=== PATIENT | female | born 1960 | race Caucasian/White ===

== ENCOUNTER → 2019-05-19 | Outpatient (CLI) | payer BC ==
--- NOTE | 2019-05-20 11:51 | MM ---
Reason for exam: screening (asymptomatic). Last mammogram was performed 3 years and 1 month ago. History: Patient is postmenopausal. Family history of premenopausal breast cancer in mother. Physical Findings: A clinical breast exam by your physician is recommended on an annual basis and results should be correlated with mammographic findings. MG Screening Mammo w CAD Bilateral CC and MLO view(s) were taken. Prior study comparison: April 25, 2016, bilateral MG screening mammo w CAD. November 14, 2013, bilateral digital screening mammo w/CAD. The breast tissue is heterogeneously dense. This may lower the sensitivity of mammography. Benign appearing bilateral calcifications. No suspicious abnormality. No significant changes when compared with prior studies. ASSESSMENT: Benign, BI-RAD 2 RECOMMENDATION: Routine screening mammogram of both breasts in 1 year.
== END | disposition home or self-care (01) ==
LOC: RADMAMWWP 09:41
PROVIDERS: ATTEND Family Medicine
DX: Z12.31 Encounter for screening mammogram for malignant neoplasm of breast (principal)
CPT/HCPCS: 77067

== ENCOUNTER → 2020-05-21 | Outpatient (CLI) | payer BC ==
--- NOTE | 2020-05-25 08:33 | MM ---
Reason for exam: screening (asymptomatic). Last mammogram was performed 1 year ago. History: Patient is postmenopausal. Family history of premenopausal breast cancer in mother. Physical Findings: A clinical breast exam by your physician is recommended on an annual basis and results should be correlated with mammographic findings. MG Screening Mammo w CAD Bilateral CC and MLO view(s) were taken. Prior study comparison: May 19, 2019, bilateral MG screening mammo w CAD. April 25, 2016, bilateral MG screening mammo w CAD. There are scattered fibroglandular densities. Benign appearing bilateral calcifications. No significant changes when compared with prior studies. ASSESSMENT: Benign, BI-RAD 2 RECOMMENDATION: Routine screening mammogram of both breasts in 1 year.
== END | disposition home or self-care (01) ==
LOC: RADMAMWWP 14:49
PROVIDERS: ATTEND Family Medicine
DX: Z12.31 Encounter for screening mammogram for malignant neoplasm of breast (principal)
CPT/HCPCS: 77067

== ENCOUNTER → 2021-06-28 | Outpatient (CLI) | payer BC ==
--- NOTE | 2021-06-28 11:22 | US ---
EXAMINATION TYPE: US carotid duplex BILAT DATE OF EXAM: 06/28/2021 COMPARISON: US Carotid 09/07/2015 CLINICAL HISTORY: R42 Dizziness and giddiness. EXAM MEASUREMENTS: RIGHT: Peak Systolic Velocity (PSV) cm/sec ----- Right CCA: 104 ----- Right ICA: 93.6 ----- Right ECA: 174 ICA/CCA ratio: 1.5 RIGHT: End Diastole cm/sec ----- Right CCA: 19.8 ----- Right ICA: 35.3 ----- Right ECA: 26.2 LEFT: Peak Systolic Velocity (PSV) cm/sec ----- Left CCA: 87.1 ----- Left ICA: 96.2 ----- Left ECA: 172.6 ICA/CCA ratio: 1.4 LEFT: End Diastole cm/sec ----- Left CCA: 19.8 ----- Left ICA: 35.3 ----- Left ECA: 26.3 VERTEBRALS (direction of flow): Right Vertebral: Antegrade Left Vertebral: Antegrade Rhythm: Normal Mild plaque visualized within the right and left carotid bulb as well as the left proximal ICA. Velo cities appear elevated within the right and left ECA. IMPRESSION: Mild atherosclerotic changes bilaterally remain present without hemodynamic significant stenosis in either internal carotid artery. Criteria for Assigning % of Stenosis / Diameter reduction (Estimation based on the indirect measurements of the internal carotid artery velocities (ICA PSV). 1. Normal (no stenosis)=ICA PSV < 125 cm/s: ratio < 2.0: ICA EDV<40 cm/s. 2. Less than 50% stenosis=ICA PSV < 125 cm/s: ratio < 2.0: ICA EDV<40 cm/s. 3. 50 to 69% stenosis=ICA PSV of 125 to 230 cm/s: ration 2.0 ? 4.0: ICA EDV 40-100 cm/s. 4. Greater than 70% stenosis to near occlusion= ICA PSV > 230 cm/s: ratio > 4.0: ICA EDV > 100 cm/s. 5. Near occlusion= ICA PSV velocities may be low or undetectable: variable ratio and ICA EDV. 6. Total occlusion=unable to detect flow.
--- NOTE | 2021-06-29 12:48 | MM ---
Reason for exam: screening (asymptomatic). Last mammogram was performed 1 year and 1 month ago. History: Patient is postmenopausal. Family history of breast cancer in paternal aunt and premenopausal breast cancer in mother. Physical Findings: A clinical breast exam by your physician is recommended on an annual basis and results should be correlated with mammographic findings. MG Screening Mammo w CAD Bilateral CC and MLO view(s) were taken. Prior study comparison: May 21, 2020, bilateral MG screening mammo w CAD. May 19, 2019, bilateral MG screening mammo w CAD. There are scattered fibroglandular densities. No significant changes when compared with prior studies. ASSESSMENT: Benign, BI-RAD 2 RECOMMENDATION: Routine screening mammogram of both breasts in 1 year.
== END | disposition home or self-care (01) ==
LOC: RADUSWWP 10:06
PROVIDERS: ATTEND Family Medicine
DX: Z12.31 Encounter for screening mammogram for malignant neoplasm of breast (principal); I65.23 Occlusion and stenosis of bilateral carotid arteries; Z80.3 Family history of malignant neoplasm of breast; Z78.0 Asymptomatic menopausal state
CPT/HCPCS: 77067; 93880

== ENCOUNTER → 2021-10-17 | Outpatient (CLI) | payer BC ==
--- NOTE | 2021-10-17 18:05 | XR ---
EXAMINATION TYPE: XR chest 2V, XR thoracic spine complete DATE OF EXAM: 10/17/2021 COMPARISON: None available HISTORY: Right-sided pain for one year TECHNIQUE: Frontal and lateral views of the chest are obtained. 3 views of the thoracic spine FINDINGS: Grossly unremarkable lungs. No pleural effusion or pneumothorax. No gross cardiomegaly. Deg enerative changes of lower cervical spine. T1 vertebral body is suboptimally visualized in the latera l view. Preserved dorsal kyphosis. No significant anterolisthesis or retrolisthesis. No definite vertebral alessandra dy collapse or acute displaced fracture. Degenerative changes of the thoracic spine with multilevel o pposing endplate osteophytosis, most evident at the mid and lower thoracic level. Rather maintained i ntervertebral disc spaces. No gross paraspinal lesion. IMPRESSION: Degenerative changes of the lower cervical and the thoracic spine as described above.
--- NOTE | 2021-10-17 18:08 | XR ---
EXAMINATION TYPE: XR lumbar spine 2 or 3V DATE OF EXAM: 10/17/2021 COMPARISON: None available INDICATION: Right-sided pain for one year, worse in the last 3 months. TECHNIQUE: Standard 3 views of the lumbar spine. FINDINGS: Preserved lumbar lordosis. No significant anterolisthesis or retrolisthesis. No definite vertebral alessandra dy collapse or acute displaced fracture. Degenerative changes of the lumbar spine with multilevel opposing endplate osteophytosis. Slightly de generated L5-S1 disc. Suspected mild L5-S1 facet osteoarthropathy. Aortic atherosclerotic calcificati ons. IMPRESSION: Degenerative changes of the lumbar spine as described above. Further MRI assessment can be considered if clinically required.
== END | disposition home or self-care (01) ==
LOC: RADXRMAIN 11:21
PROVIDERS: ATTEND Internal Medicine Hematology & Oncology
DX: M47.812 Spondylosis without myelopathy or radiculopathy, cervical region (principal); M47.816 Spondylosis without myelopathy or radiculopathy, lumbar region; M47.814 Spondylosis without myelopathy or radiculopathy, thoracic region; D68.8 Other specified coagulation defects; E78.5 Hyperlipidemia, unspecified; Z71.3 Dietary counseling and surveillance
CPT/HCPCS: 71046; 72072; 72100

== ENCOUNTER → 2021-10-24 | Outpatient (CLI) | payer BC ==
--- NOTE | 2021-10-24 12:25 | US ---
EXAMINATION TYPE: US abdomen complete DATE OF EXAM: 10/24/2021 COMPARISON: NONE CLINICAL HISTORY: 61-year-old female R10.11 ABDOMINAL PAIN. RUQ Pain TECHNIQUE: Multiple sonographic images of the abdomen are obtained. FINDINGS: EXAM MEASUREMENTS: Liver Length: 15.0 cm Gallbladder Wall: 0.2 cm CBD: 0.4 cm Spleen: 12.1 cm Right Kidney: 9.9 x 5.1 x 5.1 cm Left Kidney: 10.4 x 5.6 x 5.6 cm Pancreas: Pulmonary portions of the pancreatic body are visualized. Head and tail obscured by bowel gas shadowing. Liver: Echogenic and mildly heterogeneous. No focal lesion seen. Gallbladder: No stones seen Evidence for sonographic Loyola's sign: No CBD: wnl Spleen: wnl Right Kidney: A couple parapelvic cysts measuring up to 1.7 cm. These are not branching and do not co nnect, arguing against hydronephrosis. Left Kidney: No hydronephrosis or masses seen Upper IVC: wnl Abd Aorta: wnl IMPRESSION: 1. Suspect mild to moderate hepatic steatosis. 2. No gallstones or biliary ductal dilatation.
== END | disposition home or self-care (01) ==
LOC: RADUSWWP 10:45
PROVIDERS: ATTEND Internal Medicine Hematology & Oncology
DX: R10.11 Right upper quadrant pain (principal)
CPT/HCPCS: 76700

== ENCOUNTER 2021-12-01 08:43 | Day surgery (SDC) | payer BC ==
[2021-11-29 16:24] VITALS: BMI 36.8
--- NOTE | 2021-12-01 08:14 | P.GSHP ---
History of Present Illness H&P Date: 12/01/21 CHIEF COMPLAINT: Colon screen HISTORY OF PRESENT ILLNESS: The patient is a 61-year-old female who presents for colon screen. Lower endoscopy was offered for further evaluation and management. PAST MEDICAL HISTORY: Please see list. PAST SURGICAL HISTORY: Please see list. MEDICATIONS: Please see list. ALLERGIES: Please see list. SOCIAL HISTORY: No illicit drug use FAMILY HISTORY: No reports of Crohn disease or ulcerative colitis. REVIEW OF ORGAN SYSTEMS: CONSTITUTIONAL: No reports of fevers or chills. PHYSICAL EXAM: VITAL SIGNS: Stable GENERAL: Well-developed pleasant in no acute distress. HEENT: No scleral icterus. Extraocular movements grossly intact. Moist buccal mucosa. NECK: Supple without lymphadenopathy. CHEST: Unlabored respirations. Equal bilateral excursions. CARDIOVASCULAR: Regular rate and rhythm. Distal 2+ pulses. ABDOMEN: Soft, nontender, nondistended. MUSCULOSKELETAL: No clubbing, cyanosis, or edema. ASSESSMENT: 1. Colon screen. PLAN: 1. Recommend proceeding with a lower endoscopy Past Medical History Past Medical History: Hyperlipidemia, Hypertension, Thyroid Disorder Additional Past Medical History / Comment(s): fatty liver, hx colon polyp History of Any Multi-Drug Resistant Organisms: None Reported Additional Past Surgical History / Comment(s): colonoscopy,repair lt detached retina Past Anesthesia/Blood Transfusion Reactions: No Reported Reaction Smoking Status: Never smoker - Past Family History Mother Family Medical History: Deep Vein Thrombosis (DVT) Sister(s) Family Medical History: Vascular Disorder Medications and Allergies Home Medications Medication Instructions Recorded Confirmed Type Aspirin 81 mg PO DAILY 11/29/21 11/29/21 History Chlorthalidone [Hygroton] 12.5 mg PO DAILY 11/29/21 11/29/21 History Cholecalciferol [Vitamin D3 (25 50 mcg PO DAILY 11/29/21 11/29/21 History Mcg = 1000 Iu)] Levothyroxine Sodium [Synthroid] 88 mcg PO QAM 11/29/21 11/29/21 History Magnesium 250 mg PO HS 11/29/21 11/29/21 History Olmesartan Medoxomil 20 mg PO QAM 11/29/21 11/29/21 History Rosuvastatin Calcium 20 mg PO HS 11/29/21 11/29/21 History Ubidecarenone [Co Q-10] 100 mg PO DAILY 11/29/21 11/29/21 History amLODIPine BESYLATE 10 mg PO QAM 11/29/21 11/29/21 History Allergies Allergy/AdvReac Type Severity Reaction Status Date / Time ezetimibe [From Zetia] Allergy "it didn't Verified 11/29/21 16:13 agree with me" gemifloxacin [From Factive] Allergy Swelling,hi Verified 11/29/21 16:13 ve
[~2021-12-01 08:43] MED LIST: LACTATED RINGERS 1,000 ML IV SCH
[2021-12-01] MEDS ORDERED: LIDOCAINE 1% (10MG/ML) FOR IV START INTRADERMA ONE (09:15)
[2021-12-01 09:17] VITALS: RESP 16; TEMP 97.1
[2021-12-01] MEDS ORDERED: PROPOFOL 10 MG/ML 20 ML VIAL IV ONE (10:16)
[2021-12-01 11:00] VITALS: BP 134/63; PULSE 56
--- NOTE | 2021-12-01 11:07 | P.PCN ---
Date of Procedure: 12/01/21 Description of Procedure: PREOPERATIVE DIAGNOSIS: Colonoscopy screening. POSTOPERATIVE DIAGNOSIS: Colonoscopy screening. Diverticulosis, severe sigmoid diverticulosis with stricture OPERATION: Colonoscopy to the cecum, ileocecal valve and appendiceal orifice. SURGEON: Radha George MD. ANESTHESIA: MAC. INDICATIONS: The patient is a 61-year-old female who presents for colonoscopy screening. Last colonoscopy 5 years ago. Benefits and risks were described and informed consent was obtained. DESCRIPTION OF PROCEDURE: The patient had undergone Sutab prep. The patient had been brought into the operating room and laid in the left lateral decubitus position. After adequate intravenous sedation, the rectum was examined with 2% lidocaine jelly. No external hemorrhoids were encountered. The rectal tone was within normal limits. No lesions were palpated in the rectal vault. An Olympus colonoscope was advanced until the cecum, ileocecal valve and appendiceal orifice were clearly viewed. The prep was excellent. Scattered diverticulosis was encountered. No colonic polyps were found. No evidence of focal colitis was found. Retroflexion of the scope demonstrated grade 1 internal hemorrhoids without active bleeding or inflammation. The colon was desufflated. The patient had tolerated the p rocedure well. Withdrawal time was over 6 minutes. FINDINGS: Aronchick preparation quality scale 1 (1-5) Internal hemorrhoids, grade 1 No external prolapsed hemorrhoids. No arteriovenous malformations. No adenomatous polyps. No focal colitis. RECOMMENDATIONS: Lower endoscopy in 5 years, 2026 Plan - Discharge Summary Discharge Rx Participant: No New Discharge Prescriptions: Continue Rosuvastatin Calcium 20 mg PO HS Magnesium 250 mg PO HS Aspirin 81 mg PO DAILY Ubidecarenone [Co Q-10] 100 mg PO DAILY Cholecalciferol [Vitamin D3 (25 Mcg = 1000 Iu)] 50 mcg PO DAILY Olmesartan Medoxomil 20 mg PO QAM amLODIPine BESYLATE 10 mg PO QAM Levothyroxine Sodium [Synthroid] 88 mcg PO QAM Chlorthalidone [Hygroton] 12.5 mg PO DAILY Discharge Medication List Aspirin 81 mg PO DAILY 11/29/21 [History] Chlorthalidone [Hygroton] 12.5 mg PO DAILY 11/29/21 [History] Cholecalciferol [Vitamin D3 (25 Mcg = 1000 Iu)] 50 mcg PO DAILY 11/29/21 [History] Levothyroxine Sodium [Synthroid] 88 mcg PO QAM 05/10/22 [History] Magnesium 250 mg PO HS 11/29/21 [History] Olmesartan Medoxomil 20 mg PO QAM 11/29/21 [History] Rosuvastatin Calcium 20 mg PO HS 11/29/21 [History] Ubidecarenone [Co Q-10] 100 mg PO DAILY 11/29/21 [History] amLODIPine BESYLATE 10 mg PO QAM 11/29/21 [History] Follow up Appointment(s)/Referral(s): Radha George MD [STAFF PHYSICIAN] - As Needed Patient Instructions/Handouts: Diverticulosis Diet (GEN), Diverticulosis (DC), *Surgery [facility] - (Anesthesia) Endoscopy Discharge Instructions, Colonoscopy (DC) Activity/Diet/Wound Care/Special Instructions: Repeat colonoscopy in 5 years, 2026 Discharge Disposition: HOME SELF-CARE
== END 2021-12-01 11:25 | disposition home or self-care (01) ==
LOC: ORWHC2ENDO 08:43
PROVIDERS: ATTEND Surgery Plastic and Reconstructive Surgery
DX: Z12.11 Encounter for screening for malignant neoplasm of colon (principal); K57.30 Diverticulosis of large intestine without perforation or abscess without bleeding; E07.9 Disorder of thyroid, unspecified; E78.5 Hyperlipidemia, unspecified; I10 Essential (primary) hypertension; Z79.82 Long term (current) use of aspirin; Z86.010 Personal history of colon polyps; Z79.899 Other long term (current) drug therapy
CPT/HCPCS: 45378; J2704

== ENCOUNTER → 2021-12-14 | Outpatient (CLI) | payer BC ==
--- NOTE | 2021-12-14 21:02 | CT ---
EXAMINATION TYPE: CT abdomen pelvis w con DATE OF EXAM: 12/14/2021 COMPARISON: Ultrasound dated 10/24/2021 HISTORY: h/o right side abd pain and diverticulitis CT DLP: 1613 mGycm Automated exposure control for dose reduction was used. TECHNIQUE: Helical acquisition of images was performed from the lung bases through the pelvis. CONTRAST: Performed with Oral Contrast and with IV Contrast, patient injected with 100 mL of Isovue 300. FINDINGS: LUNG BASES: 5mm nodule is seen at the posterior aspect of the left lower lobe, requiring no further f ollow-up if low risk patient. If high risk patient, optional follow-up CT scan in 12 months can be co nsidered. LIVER/GB: No significant abnormality is appreciated. PANCREAS: No significant abnormality is seen. SPLEEN: No significant abnormality is seen. ADRENALS: Tiny bilateral adrenal calcifications, nonspecific. Questionable 9 mm right adrenal nodule. Precautionary follow-up CT scan in 3-6 months can be considered. KIDNEYS: Tiny bilateral renal hypodensities, possibly representing tiny renal cysts. Grossly unremark able kidneys otherwise. FREE AIR: No free air is visualized. RETROPERITONEAL ADENOPATHY: None visualized REPRODUCTIVE ORGANS: No gross uterine or adnexal mass. URINARY BLADDER: No significant abnormality is seen. PELVIC ADENOPATHY: None visualized. OSSEOUS STRUCTURES: No aggressive bone lesion. BOWEL: Unremarkable stomach, duodenum and small bowel. Colonic diverticulosis most evident involving the sigmoid colon and descending colon. No evidence of acute appendicitis. OTHER: Arterial atherosclerotic calcification. Infrarenal abdominal aortic ectasia measuring up to 2 cm. No sizable ascites. IMPRESSION: Colonic diverticulosis without evidence of acute diverticulitis. Other incidental findings and recomm endations as described above.
== END | disposition home or self-care (01) ==
LOC: RADCTMAIN 16:05
PROVIDERS: ATTEND Surgery Plastic and Reconstructive Surgery
DX: K57.30 Diverticulosis of large intestine without perforation or abscess without bleeding (principal)
CPT/HCPCS: 74177; Q9967

== ENCOUNTER → 2022-01-09 | Outpatient (CLI) | payer BC ==
--- NOTE | 2022-01-09 09:33 | NM ---
EXAMINATION TYPE: NM hepatobiliary w EF DATE OF EXAM: 01/09/2022 COMPARISON: Ultrasound 10/24/2021, CT 12/14/2021 HISTORY: Chronic cholecystitis TECHNIQUE: After the intravenous administration of 5.34 mCi Tc 99m Mebrofenin hepatobiliary scintigra phy is performed. Immediate images post injection. FINDINGS: There is satisfactory initial accumulation of tracer by the liver. The gallbladder is visualized wit hin 8 minutes. The small bowel activity is noted within 20 minutes. At one hour 8 ounces of oral en sure plus is given to mimic CCK and gallbladder ejection fraction is calculated at 17 %, abnormal low . Therefore there is no scintigraphic evidence of cystic or common bile duct obstruction. IMPRESSION: Abnormal low gallbladder ejection fraction
== END | disposition home or self-care (01) ==
LOC: RADNMMAIN 06:47
PROVIDERS: ATTEND Surgery Plastic and Reconstructive Surgery
DX: K82.8 Other specified diseases of gallbladder (principal)
CPT/HCPCS: 78226; A9537

== ENCOUNTER → 2022-01-24 | Outpatient (CLI) | payer BC | END | disposition home or self-care (01) | LOC: LABWHC1 16:22 | PROVIDERS: ATTEND Surgery Plastic and Reconstructive Surgery | DX: I11.9 Hypertensive heart disease without heart failure (principal) | CPT/HCPCS: 93005 ==

== ENCOUNTER → 2022-02-09 | Outpatient (CLI) | payer BC ==
[2022-02-09 14:31] LABS: HCT 43.2 % (34.0-46.0); MCH 31.9 pg (25.0-35.0); MCHC 32.4 g/dL (31.0-37.0); MCV 98.5 fL (80.0-100.0); Mean Platelet Volume 7.8; Platelet Count 298 k/uL (150-450); RBC 4.38 m/uL (3.80-5.40); RDW 12.6 % (11.5-15.5); WBC 5.9 k/uL (3.8-10.6)
== END | disposition home or self-care (01) ==
LOC: LABPAT 13:48
PROVIDERS: ATTEND Surgery Plastic and Reconstructive Surgery
DX: Z01.812 Encounter for preprocedural laboratory examination (principal)
CPT/HCPCS: 85027

== ENCOUNTER 2022-02-10 06:10 | Day surgery (SDC) | payer BC ==
[2022-02-09 10:56] VITALS: BMI 35.9
[~2022-02-10 06:10] MED LIST changes: +DEXAMETHASONE SOD PHOSPHATE 4 MG/ML 1 ML VIAL IV ONE; +HEPARIN SODIUM,PORCINE/PF 5,000 UNIT/0.5 ML SYRINGE SQ PRN; +HYDROmorphone 0.5 MG/0.5 ML SYRINGE IVP PRN; +LIDOCAINE 1% (10MG/ML) FOR IV START INTRADERMA PRN; +ONDANSETRON 4 MG/2 ML VIAL IVP ONE
[2022-02-10] MEDS ORDERED: ACETAMINOPHEN TAB 500 MG TAB PO PRN (06:59)
[2022-02-10] MEDS ORDERED: INDOCYANINE GREEN 25 MG VIAL IV STA (06:59)
--- NOTE | 2022-02-10 07:02 | P.GSHP ---
History of Present Illness H&P Date: 02/10/22 CHIEF COMPLAINT: Cholecystitis HISTORY OF PRESENT ILLNESS: The patient is a 61-year-old female who presents with history of epigastric including right upper quadrant abdominal pain. She underwent diagnostic studies for her gallbladder. Separately her clinical picture was consistent with cholecystitis. Now she presents for surgical intervention. PAST MEDICAL HISTORY: Please see list PAST SURGICAL HISTORY: Please see list MEDICATIONS: Please see list ALLERGIES: Please see list SOCIAL HISTORY: Please see list FAMILY HISTORY: Please see list REVIEW OF ORGAN SYSTEMS: CONSTITUTIONAL: No reports of fevers or chills. HEENT: Denies any troubles with the vision or hearing. ENDOCRINE: No reports of hypothyroidism. No diabetes. RESPIRATORY: No recent pneumonias. CARDIOVASCULAR: Denies chest pain or palpitations GI: No blood in stools or constipation. MUSCULOSKELETAL: Has occasional joint pain including back pain. NEURO: No seizure disorders or headaches. No recent stroke. PSYCH: No depression or suicidal ideation. GENITOURINARY: No active blood in urine. No urinary hesitancy. HEMATOLOGIC: No personal or family history of DVTs or pulmonary emboli. SKIN: No skin cancer. PHYSICAL EXAM: VITAL SIGNS: Afebrile vital signs stable GENERAL: Well-developed pleasant in no acute distress. HEENT: No scleral icterus. Extraocular movements grossly intact. Moist buccal mucosa. NECK: Supple without lymphadenopathy. CHEST: Unlabored respirations. Equal bilateral excursions. CARDIOVASCULAR: Regular rate regular rhythm rhythm. Distal 2+ pulses. ABDOMEN: Soft, nondistended. Tender along the epigastrium and right upper quadrant. MUSCULOSKELETAL: No clubbing, cyanosis, or edema. NEURO: Cranial nerves II to XII within normal limits. No focal or lateralizing signs. PSYCH: Alert and oriented to person, place and time. SKIN: Well-perfused good skin turgor. ASSESSMENT: 1. Epigastric and right upper quadrant abdominal pain 2. Chronic cholecystitis 3. Symptomatic gallstones. PLAN: 1. Will need a robotic cholecystectomy possible open. Benefits and risks were described. 2. Heparin for DVT prophylaxis 5000 units. 3. Antibiotic prophylaxis. Past Medical History Past Medical History: Hyperlipidemia, Hypertension, Osteoarthritis (OA), Thyroid Disorder Additional Past Medical History / Comment(s): fatty liver, hx colon polyp, diverticulosis, heart murmur., hx of detached retina with surgery-has double vision corrected with her glasses. History of Any Multi-Drug Resistant Organisms: None Reported Past Surgical History: Tubal Ligation Additional Past Surgical History / Comment(s): colonoscopy, repair lt detached retina, [facility] procedure Past Anesthesia/Blood Transfusion Reactions: No Reported Reaction Past Psychological History: No Psychological Hx Reported Smoking Status: Never smoker Past Alcohol Use History: None Reported Past Drug Use History: None Reported - Past Family History Mother Family Medical History: Deep Vein Thrombosis (DVT) Sister(s) Family Medical History: Vascular Disorder Medications and Allergies Home Medications Medication Instructions Recorded Confirmed Type Aspirin 81 mg PO DAILY 11/29/21 02/10/22 History Chlorthalidone [Hygroton] 12.5 mg PO DAILY 11/29/21 02/10/22 History Cholecalciferol [Vitamin D3 (25 50 mcg PO DAILY 11/29/21 02/10/22 History Mcg = 1000 Iu)] Levothyroxine Sodium [Synthroid] 88 mcg PO QAM 11/29/21 02/10/22 History Magnesium 250 mg PO HS 11/29/21 02/10/22 History Olmesartan Medoxomil 20 mg PO QAM 11/29/21 02/10/22 History Rosuvastatin Calcium 20 mg PO HS 11/29/21 02/10/22 History Ubidecarenone [Co Q-10] 100 mg PO DAILY 11/29/21 02/10/22 History amLODIPine BESYLATE 10 mg PO QAM 11/29/21 02/10/22 History Acetaminophen [Tylenol Extra 1,000 mg PO HS PRN 02/09/22 02/10/22 History Strength] Allergies Allergy/AdvReac Type Severity Reaction Status Date / Time ezetimibe [From Zetia] Allergy "it didn't Verified 02/10/22 06:50 agree with me" gemifloxacin [From Factive] Allergy Swelling,hi Verified 02/10/22 06:50 ve
[2022-02-10] MEDS ORDERED: fentaNYL (PF) 50 MCG/ML 2 ML AMP ONE (07:32)
[2022-02-10] MEDS ORDERED: SUCCINYLCHOLINE CHLORIDE 100 MG/5 ML SYR IV ONE (07:32)
[2022-02-10] MEDS ORDERED: PROPOFOL 10 MG/ML 20 ML VIAL IV ONE (07:32)
[2022-02-10] MEDS ORDERED: LIDOCAINE 2% INJ 20 MG/ML (2 ML VIAL) ONE (07:32)
[2022-02-10] MEDS ORDERED: GLYCOPYRROLATE 0.2 MG/ML 2 ML VIAL ONE (07:32)
[2022-02-10] MEDS ORDERED: ROCURONIUM 10 MG/ML (5 ML VIAL) IV ONE (07:32)
[2022-02-10] MEDS ORDERED: ePHEDrine 50 MG/ML 1 ML VIAL ONE (07:32)
[2022-02-10] MEDS ORDERED: MIDAZOLAM 2 MG/2 ML VIAL ONE (07:32)
[2022-02-10] MEDS ORDERED: NEOSTIGMINE 1 MG/ML 10 ML VIAL ONE (07:32)
[2022-02-10 07:37] LABS: ALT 20 U/L (4-34); African American GFR (CKD) >90 (>60 ml/min/1.73 sqM); Albumin 4.8 g/dL (3.5-5.0); Anion Gap 9 mmol/L; Blood Urea Nitrogen 18 mg/dL (7-17); Calcium 9.5 mg/dL (8.4-10.2); Carbon Dioxide 27 mmol/L (22-30); Chloride 103 mmol/L (98-107); Glucose 110 mg/dL (74-99); Non-African American GFR(CKD) 80 (>60 ml/min/1.73 sqM); Sodium 139 mmol/L (137-145); Total Bilirubin 1.3 mg/dL (0.2-1.3); Total Protein 8.1 g/dL (6.3-8.2)
[2022-02-10 07:43] LABS: Potassium 3.8 mmol/L (3.5-5.1)
[2022-02-10 07:44] LABS: AST 26 U/L (14-36); Alkaline Phosphatase 85 U/L (38-126)
[2022-02-10] MEDS ORDERED: BUPIVACAIN-EPI 0.25%-1:200,000 30 ML VIAL SQ ONE ×2 (07:54→08:03)
[2022-02-10 09:08] VITALS: TEMP 96.8
--- NOTE | 2022-02-10 09:25 | P.OP ---
Date of Procedure: 02/10/22 Description of Procedure: SURGEON: RADHA GEORGE MD PREOPERATIVE DIAGNOSES: 1. Chronic cholecystitis POSTOPERATIVE DIAGNOSES: 1. Chronic cholecystitis 2. Peritoneal adhesions OPERATION: Robotic-assisted da Anthony Xi laparoscopic cholecystectomy, multiport with FIREFLY ESTIMATED BLOOD LOSS: 5 mL. SPECIMENS REMOVED: Gallbladder. COMPLICATIONS: None. OPERATIVE FINDINGS: 1. Moderate scarring over entire gallbladder with peritoneal adhesions, pericholecystic with features of chronic cholecystitis INDICATIONS: The patient is a 61-year-old female who presents with symptomatic gallstones. Robotic assisted laparoscopic approach was described. Benefits and risks of the procedure including but not limited to bleeding, infection, injury to the biliary tree was described. Informed consent was obtained. DESCRIPTION OF PROCEDURE: Patient was brought to the operating room, placed in supine position. After general induction, the abdomen had been prepped and draped in standard sterile fashion. The robotic da Anthony XI system was primed. After a timeout protocol was performed, the patient had been prepped and draped in standard sterile fashion. The patient was injected with indocyanine green. A 5 mm 0 degrees laparoscopic trocar entry was performed along the left upper quadrant. The abdomen insufflated to 15 mmHg pressure which was tolerated well. Diagnostic laparoscopy demonstrated no injury to bowel viscera or mesentery. The liver surface was unremarkable. Next, two 8 mm robotic ports were placed along the right upper abdomen. The camera 8-mm port was maintained along the epigastrium. Another 8 mm port was placed along the left upper abdominal wall after exchanging the 5 mm port. Please note that the ports were placed at least 10 to 15 cm away from the target anatomy of the gallbladder. The robot was docked along the left lateral abdomen. The patient was repositioned in reverse Trendelenburg position. Using a grasper for arm 3, a grasper for arm 4, including hook cautery for arm 1, the robotic system was docked and primed as described. Instruments were interchanged by the diet assistant including hook cautery, Bovie cautery and clip appliers. I had sat at the console. The gallbladder was scarred with peritoneal adhesions. Lysis of adhesions was performed to free the gallbladder from the surrounding tissues. Next attention was brought to the infundibulum and cystic structures. The infundibulum and cystic duct were dissected free from surrounding tissues. The cystic duct was isolated. FIREFLY was used to identify the cystic artery and cystic structures. A critical view of safety was obtained. Large PLASTIC clips were used throughout the entire case. Using a clip lime plant operator, 2 clips were placed at the junction of the infundibulum and cystic duct. The cystic duct was divided between clips. Next, the cystic artery was similarly clipped and cauterized. Electro-Bovie cautery was used to remove the gallbladder from the hepatic fossa. Hemostasis was checked and found to be adequate. The robot was undocked. I re-scrubbed into the case. Using a 10 mm Endo Catch bag via the left upper quadrant incision, the specimen was removed from the abdominal cavity. All pneumoperitoneum instruments were evacuated from the abdominal cavity. The incisions were reapproximated using 4-0 Monocryl in an interrupted subcuticular fashion. Fascial defects were less than 8 mm in size. Please note along the trocar sites, local anesthetic was placed as a field block prior to insertion of all instruments. Liquid glue was applied to the skin. At the end of the procedure needle, sponge, and instrument count had been verified correct by the surgical resident. The patient was transferred to postanesthesia care unit in stable condition. Intraoperative films were shared with the patient's family. Plan - Discharge Summary Discharge Rx Participant: No New Discharge Prescriptions: New Simethicone [Gas-X] 125 mg PO AC-TID PRN #20 capsule PRN Reason: Pain Ibuprofen [Motrin] 600 mg PO Q8HR PRN #30 tab PRN Reason: Pain Acetaminophen Tab [Tylenol Tab] 1,000 mg PO Q6HR PRN #30 tablet PRN Reason: Pain Continue Rosuvastatin Calcium 20 mg PO HS Magnesium 250 mg PO HS Aspirin 81 mg PO DAILY Ubidecarenone [Co Q-10] 100 mg PO DAILY Cholecalciferol [Vitamin D3 (25 Mcg = 1000 Iu)] 50 mcg PO DAILY Olmesartan Medoxomil 20 mg PO QAM amLODIPine BESYLATE 10 mg PO QAM Levothyroxine Sodium [Synthroid] 88 mcg PO QAM Chlorthalidone [Hygroton] 12.5 mg PO DAILY Acetaminophen [Tylenol Extra Strength] 1,000 mg PO HS PRN PRN Reason: Pain Discharge Medication List Aspirin 81 mg PO DAILY 11/29/21 [History] Chlorthalidone [Hygroton] 12.5 mg PO DAILY 11/29/21 [History] Cholecalciferol [Vitamin D3 (25 Mcg = 1000 Iu)] 50 mcg PO DAILY 11/29/21 [History] Levothyroxine Sodium [Synthroid] 88 mcg PO QAM 11/29/21 [History] Magnesium 250 mg PO HS 11/29/21 [History] Olmesartan Medoxomil 20 mg PO QAM 11/29/21 [History] Rosuvastatin Calcium 20 mg PO HS 11/29/21 [History] Ubidecarenone [Co Q-10] 100 mg PO DAILY 11/29/21 [History] amLODIPine BESYLATE 10 mg PO QAM 11/29/21 [History] Acetaminophen [Tylenol Extra Strength] 1,000 mg PO HS PRN 02/09/22 [History] Acetaminophen Tab [Tylenol Tab] 1,000 mg PO Q6HR PRN #30 tablet 02/10/22 [Rx] Ibuprofen [Motrin] 600 mg PO Q8HR PRN #30 tab 02/10/22 [Rx] Simethicone [Gas-X] 125 mg PO AC-TID PRN #20 capsule 02/10/22 [Rx] Follow up Appointment(s)/Referral(s): Radha George MD [STAFF PHYSICIAN] - 02/14/22 (Telehealth) Patient Instructions/Handouts: Low Fat Diet (ED), Laparoscopic Cholecystectomy (DC), *[facility] - Managing Your Pain After Surgery Without Opioids Activity/Diet/Wound Care/Special Instructions: Recommend low-fat diet for the next 2 days. No lifting over 10 pounds in 2 weeks until Feb 24. November shower. No bath tub soaks for two weeks until Feb 24. Diet as tolerated. Use Tylenol, simethicone and ibuprofen or Aleve scheduled for the next 24-48 hours for best pain relief. Use ice along incisions for today to prevent swelling. Discharge Disposition: HOME SELF-CARE
[2022-02-10 10:08] VITALS: RESP 16
[2022-02-10 10:31] VITALS: BP 110/56; PULSE 80
== END 2022-02-10 10:55 | disposition home or self-care (01) ==
LOC: OR 06:10
PROVIDERS: ATTEND Surgery Plastic and Reconstructive Surgery
DX: K81.1 Chronic cholecystitis (principal); K66.0 Peritoneal adhesions (postprocedural) (postinfection); E78.5 Hyperlipidemia, unspecified; I10 Essential (primary) hypertension; M19.90 Unspecified osteoarthritis, unspecified site; E07.9 Disorder of thyroid, unspecified; K76.0 Fatty (change of) liver, not elsewhere classified; Z86.010 Personal history of colon polyps; Z87.19 Personal history of other diseases of the digestive system; R01.1 Cardiac murmur, unspecified; Z98.51 Tubal ligation status; Z82.49 Family history of ischemic heart disease and other diseases of the circulatory system; Z79.82 Long term (current) use of aspirin; Z79.899 Other long term (current) drug therapy; Z79.890 Hormone replacement therapy; Z88.3 Allergy status to other anti-infective agents; Z88.8 Allergy status to other drugs, medicaments and biological substances; K21.9 Gastro-esophageal reflux disease without esophagitis
CPT/HCPCS: 88304; 80053; 47563; J2250; J1100; J2710; J0690; J2405; J3010; J0330; J2704; J1644; J2001

== ENCOUNTER → 2022-06-29 | Outpatient (CLI) | payer BC ==
--- NOTE | 2022-06-30 07:51 | MM ---
Reason for Exam: Screening (asymptomatic). Last screening mammogram was performed 12 month(s) ago. Patient History: Menarche at age 12. First Full-Term at age 18. Postmenopausal. Paternal aunt had breast cancer. Mother had breast cancer. Risk Values: Rosita 5 year model risk: 2.8%. NCI Lifetime model risk: 12.5%. Prior Study Comparison: 05/19/2019 Bilateral Screening Mammogram, [facility]. 05/21/2020 Bilateral Screening Mammogram, [facility]. 06/28/2021 Bilateral Screening Mammogram, [facility]. Tissue Density: There are scattered fibroglandular densities. Findings: Analyzed By CAD. There is occasional scattered benign-appearing small round calcifications throughout the bilateral breasts redemonstrated. There is no suspicious group of microcalcifications or new suspicious mass in either breast. Overall Assessment: Negative, BI-RAD 1 Management: Screening Mammogram of both breasts in 1 year. A clinical breast exam by your physician is recommended on an annual basis and results should be correlated with mammographic findings. Electronically signed and approved by: Luis Soto M.D.
== END | disposition home or self-care (01) ==
LOC: RADMAMWWP 09:19
PROVIDERS: ATTEND Family Medicine
DX: Z12.31 Encounter for screening mammogram for malignant neoplasm of breast (principal); Z78.0 Asymptomatic menopausal state; Z80.3 Family history of malignant neoplasm of breast
CPT/HCPCS: 77063; 77067